=== PATIENT | female | born 1970 | race Caucasian/White ===

== ENCOUNTER → 2018-08-03 | Outpatient (CLI) | payer OTHER ==
[~2018-08-03] MED LIST: CALC-484 PO; CLOP75TA57 PO; LEVO100T5 PO; MULT1CAP19 PO; SERT50TA PO; SIMV10TA3 PO; ZOLP6.252 PO
[2018-08-03 16:12] LABS: BILIRUBIN,URINE NEGATIVE (NEG); CLARITY,URINE CLEAR; COLOR,URINE YELLOW; NITRITE,URINE NEGATIVE (NEG); PH,URINE 5.5; PROTEIN,URINE NEGATIVE (NEG-TRACE); UROBILINOGEN,URINE 0.2 mg/dL (0.2 mg/dL)
[2018-08-03 16:14] LABS: BASO % 1 % (0-3); EOS # 0.2 x10^3/uL (0.0-0.7); EOS % 3 % (0-3); HEMATOCRIT 34.6 % (36.0-47.0); HEMOGLOBIN 11.2 g/dL (12.0-15.5); LYMPH # 2.1 x10^3/uL (1.0-4.8); LYMPH % 33 % (24-48); MEAN CORPUSCULAR HEMOGLOBIN 29 pg (25-35); MEAN CORPUSCULAR HGB CONC 33 g/dL (31-37); MEAN CORPUSCULAR VOLUME 88 fL (79-100); MONO # 0.6 x10^3/uL (0.0-1.1); MONO % 10 % (0-9); NEUT # 3.4 x10^3uL (1.8-7.7); NEUT % 54 % (31-73); PLATELET COUNT 276 x10^3/uL (140-400); RED BLOOD COUNT 3.92 x10^6/uL (3.50-5.40); RED CELL DISTRIBUTION WIDTH 15.2 % (11.5-14.5); WHITE BLOOD COUNT 6.3 x10^3/uL (4.0-11.0)
[2018-08-03 16:26] LABS: ALBUMIN 3.9 g/dL (3.4-5.0); ALBUMIN/GLOBULIN RATIO 1.1 (1.0-1.7); CALCIUM 8.9 mg/dL (8.5-10.1); CREATININE 0.9 mg/dL (0.6-1.0); GFR 66.3; POTASSIUM 4.2 mmol/L (3.5-5.1); TOTAL BILIRUBIN 0.3 mg/dL (0.2-1.0); TOTAL PROTEIN 7.6 g/dL (6.4-8.2)
[2018-08-03 16:28] LABS: SQUAMOUS EPITHELIAL CELL,UR MOD /LPF
[2018-08-03 16:29] LABS: BACTERIA,URINE FEW /HPF (0-FEW); RBC,URINE OCC /HPF (0-2)
--- NOTE | 2018-08-04 06:06 | EKG ---
[facility] [address] [place] [address] Test Date: 2018-08-03 Test Time: 16:18:06 Pat Name: EVAN ORTEGA Department: Room: Gender: F Liturgical Music Director: : 1970 Requested By: MARIAM LEE Order Number: [id number] Reading MD: Talat Burton Measurements Intervals Corinna Rate: 53 P: 43 ME: 142 QRS: 13 QRSD: 70 T: 20 QT: 454 QTc: 428 Interpretive Statements SINUS RHYTHM LOW LIMB LEAD VOLTAGE Electronically Signed On 08-05-2018 9:08:19 E COMMERCE MARKETING ANALYST by Talat Burton
--- NOTE | 2018-08-04 08:31 | RAD ---
Chest, 2 views, 08/03/2018: HISTORY: Preop evaluation for hysterectomy The heart size is normal. No pulmonary infiltrate is seen. There is no evidence of pleural fluid. There is a mild thoracic scoliosis with mild multilevel degenerative change. IMPRESSION: No acute cardiopulmonary abnormality is detected. Electronically signed by: Nilo Fontenot MD (08/04/2018 8:28 AM) [facility]
--- NOTE | 2018-08-04 10:50 | NUR ---
FAXED PRE - OP TEST REPORTS AT 0221 08/04/2018 TO 'S OFFICE FOR REVIEW AND RECEIVED TRANSMITTAL CONFIRMATION.
== END | disposition home or self-care (01) ==
LOC: SURGPAT 14:48
PROVIDERS: ATTEND Obstetrics & Gynecology
DX: Z01.818 Encounter for other preprocedural examination (principal); E03.9 Hypothyroidism, unspecified; E78.00 Pure hypercholesterolemia, unspecified; M41.84 Other forms of scoliosis, thoracic region; M47.894 Other spondylosis, thoracic region
CPT/HCPCS: 36415; 71046; 80053; 81001; 85025; 93005

== ENCOUNTER 2018-08-13 05:49 | Observation (INO) | payer OTHER ==
[~2018-08-13] VITALS: Ht 160 cm; Wt 83.9 kg
[2018-08-13] VITALS (10 sets, daily range): BP systolic 88–110; BP diastolic 49–74
[2018-08-13 06:44] LABS: U PREG PATIENT NEGATIVE (NEG)
[2018-08-13] MEDS: IV RINGERS,LACTATED 1000ML 1,000 ML IV SCH ×2 (06:46→09:43)
[2018-08-13] MEDS ORDERED: ESTROGENS, CONJ VAGINAL CREAM 30GM TUBE. ONE (06:59)
[2018-08-13] MEDS ORDERED: BUPIVACAINE-EPI 0.25%-1:200000 MPF 30 ML VIAL. ONE (06:59)
[2018-08-13] MEDS ORDERED: LIDOCAINE 1% PF 2 ML VIAL. ID PRN (07:00)
[2018-08-13] MEDS ORDERED: HYDROmorphone 2 MG/ML VIAL IV PRN (07:00)
[2018-08-13] MEDS ORDERED: PROCHLORPERAZINE 10 MG/2 ML VIAL. IV PRN (07:00)
[2018-08-13] MEDS ORDERED: MORPHINE SULFATE 4 MG/ML VIAL. IV PRN ×2 (07:00→09:45)
[2018-08-13] MEDS ORDERED: fentaNYL PF VIAL 100 MCG/2 ML VIAL IV PRN ×2 (07:00)
[2018-08-13] MEDS ORDERED: ONDANSETRON PF 4 MG/2 ML VIAL. IV PRN ×2 (07:00→09:45)
[2018-08-13] MEDS ORDERED: DEXAMETHASONE SOD PHOS 20 MG/5 ML VIAL. ONE (07:16)
[2018-08-13] MEDS ORDERED: LIDOCAINE 2% PF 5 ML VIAL. ONE (07:16)
[2018-08-13] MEDS ORDERED: PROPOFOL 20 ML IV ONE ×2 (07:16→09:17)
[2018-08-13] MEDS ORDERED: ONDANSETRON PF 4 MG/2 ML VIAL. ONE (07:16)
[2018-08-13] MEDS ORDERED: ROCURONIUM 50 MG/5 ML VIAL. ONE (07:16)
[2018-08-13] MEDS ORDERED: fentaNYL PF VIAL 100 MCG/2 ML VIAL ONE ×2 (07:16→09:12)
[2018-08-13] MEDS ORDERED: MIDAZOLAM HCL/PF 2 MG/2 ML VIAL. ONE (07:17)
[2018-08-13] MEDS ORDERED: SCOPOLAMINE 1.5MG PATCH. TD ONE ×2 (07:40→08:15)
[2018-08-13] MEDS ORDERED: ZOLPIDEM 5 MG TABLET. PO PRN ×2 (07:45→09:45)
[2018-08-13] MEDS ORDERED: GLYCOPYRROLATE 1 MG/5 ML VIAL. ONE (07:57)
[2018-08-13] MEDS ORDERED: SEVOFLURANE 61 TO 120 MINUTES. IH ONE (08:15)
[2018-08-13] MEDS ORDERED: PHENYLEPHRINE 10 MG/ML VIAL. ONE (08:15)
[2018-08-13] MEDS ORDERED: KETOROLAC 30 MG/ML INJ FOR OR. INJ ONE (08:23)
[2018-08-13] MEDS ORDERED: NEOSTIGMINE 10 MG/10 ML VIAL. ONE (08:35)
--- NOTE | 2018-08-13 09:32 | PDOC ---
BRIEF OPERATIVE NOTE Date: Aug 13, 2018 Pre-Op Diagnosis menorrhagia, dysmenorrhea Post-Op Diagnosis same Procedure Performed LAVH, bilateral salpingectomy, left ovarian cystectomy, reduction of omentum through umbilical hernia Surgeon Dr. Karey Palmer Strike Operations Officer Nabila Shell Anesthesiologist Dr. Zaragoza Anesthesia Type: General Blood Loss 100cc IV Fluid 1200cc Urine Output 200cc clear via bell Specimens Obtained cervix, uterus, bilateral tubes and left ovarian cyst Findings small left ovarian cyst, evidence of prior tubal ligation, umbilical hernia with omentum protruding through it Complications none Operative Note [id number] KAREY PALMER MD Aug 13, 2018 09:32
[2018-08-13] MEDS ORDERED: KETOROLAC 30 MG/ML VIAL. IV PRN (09:45)
[2018-08-13] MEDS ORDERED: 0.9 % SODIUM CHLORIDE 10 ML DISP.SYRIN. IV PRN (09:45)
[2018-08-13] MEDS ORDERED: MAGNESIUM HYDROXIDE 2,400 MG/30 ML ORAL.SUSP. PO PRN (09:45)
[2018-08-13] MEDS ORDERED: SIMETHICONE 80 MG TAB.CHEW PO PRN (09:45)
[2018-08-13] MEDS ORDERED: CALCIUM CARBONATE 500 MG TAB.CHEW PO PRN (09:45)
[2018-08-13] MEDS ORDERED: LACTULOSE 20 GM/30 ML SOLUTION. PO PRN (09:45)
[2018-08-13] MEDS ORDERED: MAG HYDROX/ALUMINUM HYD/SIMETH 30 ML ORAL.SUSP PO PRN (09:45)
[2018-08-13] MEDS ORDERED: diphenhydrAMINE 50 MG/ML VIAL IV PRN (09:45)
[2018-08-13] MEDS ORDERED: HYDROcodone/APAP 5/325MG 1 TAB TABLET PO PRN (09:45)
[2018-08-13] MEDS ORDERED: diphenhydrAMINE HCL 25 MG CAPSULE PO PRN (09:45)
[2018-08-13] MEDS ORDERED: NALOXONE 0.4 MG/ML VIAL. IV PRN (09:45)
--- NOTE | 2018-08-13 10:57 | OP ---
DATE OF SURGERY: 08/13/2018 PREOPERATIVE DIAGNOSES: 1. Menorrhagia. 2. Dysmenorrhea. 3. Anemia. POSTOPERATIVE DIAGNOSES: 1. Menorrhagia. 2. Dysmenorrhea. 3. Anemia. PROCEDURE: Laparoscopic-assisted vaginal hysterectomy, bilateral salpingectomy, left ovarian cystectomy and reduction of omentum through umbilical hernia. SURGEON: Mariam Lee M.D. ENTERTAINER & COMIC: Nabila Shell. ANESTHESIOLOGIST: [place] Zaragoza MD. ANESTHESIA: General. BLOOD LOSS: 100 mL. URINE OUTPUT: 200 mL, clear via Richards catheter. INTRAVENOUS FLUIDS: 1200 mL of crystalloid. FINDINGS: A normal retroverted uterus, evidence of prior tubal ligation, normal ovaries. She did have a small 1-2 cm appeared to be hemorrhagic cyst on the left ovary and the umbilical hernia with omentum protruding. COMPLICATIONS: None. DESCRIPTION OF PROCEDURE: This patient was taken to the operating room where general anesthesia was placed. The patient was placed in dorsal lithotomy position in [facility]. The patient's abdomen and vagina were prepped and draped in the normal sterile fashion and a Richards catheter had been inserted under sterile technique. Upon my arrival, a timeout was performed. A bivalve speculum was placed in the patient's vagina. A single tooth tenaculum was used to grasp the anterior lip of the cervix. A 10 mL of 0.25% Marcaine with epinephrine was used to circumferentially inject around the cervix for both hemodissection and hemostatic purposes later. Once this was done, the Valtchev uterine manipulator was placed through the endocervical os, locked on the single tooth tenaculum and the bivalve speculum was then removed. Top gloves were discarded and changed. Attention was then turned to the abdomen where a small left upper quadrant incision was made in the midclavicular area down from the breast line on the left side, a couple of centimeters down from the rib line. A curved Val was used to dissect through the subcuticular layer to the fascia. The 5-mm Visiport was used to directly enter the abdominal cavity. Opening patient pressure was 3-4 mmHg. Carbon dioxide gas was used to appropriately insufflate the abdominal cavity to maintain a pressure of 15 mmHg. The patient was placed in Trendelenburg position. Left lower quadrant and right lower quadrant ports were placed. They were clear of adhesions transilluminating the abdomen, making a small incision and placing the 5-mm trocar and insufflating the cuff with 4-5 mL of air. I then did move the camera, looked up at the left upper quadrant to make sure it was clear and it was and placed air in this cuff as well. Once these were all in, the left tube and ovary were elevated. The ureter was found coursing low, staying high above the ovary, but below the tube using the LigaSure to do a salpingectomy, then crossing the left uterine ovarian pedicle and getting the left round ligament. This was done exactly the same on the right side first starting looking for the ureter and then finding it coursing low, staying high above the ovary, below the tube, doing a salpingectomy, crossing the right uterine ovarian pedicle and then the right round ligament. Once this was done, the bladder flap was started from in front of the round on both sides and met in the middle using the [place] to elevate and the monopolar hook to cut across and peeling it down with excellent results. Once this was done, the uterine vessels were obtained on the right side and taking it down to the level of the uterosacrals on this side. Same thing was done on the left side obtaining the uterine vessels and going down vertically and through the cardinal and broad ligaments with the LigaSure, cauterizing and cutting down to the level of the uterosacrals. The uterus was blanching and completely free. When I grabbed the left ovary to go check it, I was able to get the 2-3 cm hemorrhagic cyst off the ovary and the remaining ovary looked good, so I placed it in the posterior cul-de-sac, so I could get it out vaginally when I did the hysterectomy. At this point, all instruments were removed from the abdomen and attention was turned vaginally. The single tooth and Valtchev were removed. A weighted speculum was placed in the patient's vagina. Thyroid Leslie clamps were placed on the anterior and posterior lips of the cervix respectively. A scalpel was used to make a circumferential incision in the cervix. The posterior cul-de-sac was sharply entered with the Allen scissors and a #0 Vicryl stitch was used to secure the posterior peritoneum to the vaginal cuff, tagging it with a curved Val clamp and cutting and passing the needle off. The short weighted vaginal speculum was removed and replaced with the long weighted Tho speculum in the posterior cul-de-sac. The peritoneum was gently pushed up with an open Ray-Jordi 4 x 4 and a curved Dow was placed here. Curved Stefanie clamps x 2 were placed on the patient's left uterosacral ligament where they were doubly clamped with curved Heaneys, cut with Allen scissors and suture ligated x 2 with 0 Vicryl. Second one was taken through the vaginal cuff securing uterosacral ligament to the vaginal cuff, tagging it with a straight Val clamp and cutting and passing the needle off. This was done exactly the same on the right side, double clamping the uterosacrals with curved Stefanie's, cutting with Allen scissors and suture ligating x 2 with 0 Vicryl and taking the second one through the vaginal cuff and tagging it with a straight Val clamp. I then did get in on the patient's right side, was able to pass the mixture curved clamp around the remaining pedicle on the right and the vaginal LigaSure was used to cauterize and cut this. I was able to then cut across where the opening was to make sure I was in, took out the Ray-Jordi and replaced just a curved Dow in the anterior cul-de-sac, was able to get around the left side as well once it was with the mixture, the curved and then using the vaginal LigaSure to cauterize and cut this side as well. Cervix, uterus, bilateral tubes were delivered in toto. The little cyst was found in the posterior cul-de-sac. It was also passed off for permanent pathology. Sponge stick was used to examine the pedicles. There was some slight bleeding from the left uterosacral. This was easily gotten with the vaginal LigaSure. A sponge stick was used to push the bowel up while I looked at this and cauterized this. A long Allis was used to grasp the anterior bladder peritoneum and then, I took the long weighted Tho speculum out and replaced it with the short weighted vaginal speculum just to examine everything again. Once hemostasis was assured, 2-0 Vicryl was taken through the anterior bladder peritoneum, left uterosacral ligament, posterior peritoneum and right uterosacral ligament, thus closing the peritoneum in a pursestring like fashion. Before I did that, I did put a couple of interrupted sutures securing the posterior peritoneum on each corner to the vaginal cuff as it was oozy just in that area with excellent result and then, I closed the peritoneum in that pursestring like fashion. Once this was done, the right and left uterosacral tags were clipped as well and the cuff was closed in an anterior to posterior running locked fashion and tied to that posterior cuff tag with excellent results, so the cuff was completely hemostatic and dry, so all instruments were removed from the vagina. All sponge, lap and needle counts were correct x 2 by OR personnel before going above. At this point, all gloves were discarded and changed and attention was turned back above for a second look. The patient was placed back in Trendelenburg. Gas was reinsufflated. Copious irrigation revealed hemostasis. Tisseel was placed over the vaginal cuff. Both ovaries looked good and it was hemostatic. Copious irrigation was done before than the Tisseel. So the right and left lower quadrant ports were taken out under direct visualization. Gas was released from the trocar cuff. They were removed and hemostatic. Gas was then released from the abdomen from the left upper quadrant port. That cuff was deflated and it was removed as well. All three port sites were being closed with 4-0 nylon at the skin and Steri-Strips and injected with 10 mL of local. The patient is currently being awakened from anesthesia. MARIAM LEE MD DR: RHIANNON/roni JOB#: [id number] / [id number]
[2018-08-13] MEDS: oxyCODONE/APAP 5/325 1 TAB TABLET PO PRN ×2 (13:51→20:49)
[2018-08-13] MEDS ORDERED: SIMVASTATIN 5 MG TABLET. PO SCH (21:00)
[2018-08-13] MEDS ORDERED: SIMVASTATIN 10 MG TABLET PO SCH (21:00)
[2018-08-14] MEDS ORDERED: LEVOTHYROXINE 100 MCG TABLET PO SCH (06:00)
[2018-08-14] MEDS: oxyCODONE/APAP 5/325 1 TAB TABLET PO PRN (06:15)
[2018-08-14 06:30] VITALS: BP 98/51
[2018-08-14 07:44] LABS: CALCIUM 8.5 mg/dL (8.5-10.1); GFR 58.7
--- NOTE | 2018-08-14 08:59 | PDOC ---
SURGICAL PROGRESS NOTE Subjective Doing well, ambulating, minimal pain, scant vag bleeding. Tolerating regular diet. Wanting to go home only problem is unable to urinate without catheter yet, putting out excellent urine but unable to urinate Vital Signs Vital Signs Date Time Temp Pulse Resp B/P (MAP) Pulse Ox O2 Delivery O2 Flow Rate FiO2 08/14/18 06:30 99.2 75 14 98/51 (67) 97 Room Air 99.2 08/13/18 10:45 2.0 I&O Intake and Output 08/14/18 06:59 Intake Total 3487 ml Output Total 1300 ml Balance 2187 ml Intake Oral 1737 ml IV Total 1750 ml Output Urine Total 1200 ml Estimated Blood Loss 100 ml PATIENT HAS A HAAS: No General: Alert, Oriented X3, Cooperative, No acute distress HEENT: Atraumatic Heart: Regular rate Abdomen: Soft, No tenderness, Other (all port sites c/d/i) Extremities: No clubbing, No cyanosis, No edema, No tenderness/swelling Skin: No rashes, No breakdown Neuro: Normal speech Psych/Mental Status: Mental status NL, Mood NL Labs Laboratory Tests Test 08/13/18 06:15 08/14/18 07:05 Urine Test Negative (NEG) Hematocrit 32.5 % (36.0-47.0) Sodium Level 144 mmol/L (136-145) Potassium Level 4.0 mmol/L (3.5-5.1) Chloride Level 107 mmol/L (98-107) Carbon Dioxide Level 29 mmol/L (21-32) Anion Gap 8 (6-14) Blood Urea Nitrogen 13 mg/dL (7-20) Creatinine 1.0 mg/dL (0.6-1.0) Estimated GFR (Cockcroft-Gault) 58.7 Glucose Level 94 mg/dL (70-99) Calcium Level 8.5 mg/dL (8.5-10.1) Laboratory Tests Test 08/14/18 07:05 Hematocrit 32.5 % (36.0-47.0) Sodium Level 144 mmol/L (136-145) Potassium Level 4.0 mmol/L (3.5-5.1) Chloride Level 107 mmol/L (98-107) Carbon Dioxide Level 29 mmol/L (21-32) Anion Gap 8 (6-14) Blood Urea Nitrogen 13 mg/dL (7-20) Creatinine 1.0 mg/dL (0.6-1.0) Estimated GFR (Cockcroft-Gault) 58.7 Glucose Level 94 mg/dL (70-99) Calcium Level 8.5 mg/dL (8.5-10.1) I have reviewed the following labs, vitals, nursing Problem List POD#1 s/p LAVH/bilateral salpingectomy, left ovarian cystectomy and reduction of umbilical hernia urinary retention, if able to pee can d/c to home without catheter NPV x 6 weeks light/limited x 2 weeks keep scheduled follow up with me in one week NO driving while on narcotic pain meds already has pain pills at home call or return sooner for any other questions not limited to but including pain unrelieved withpain meds, increased or unexplained vaginal bleeding or T>100.4 MARIAM LEE MD Aug 14, 2018 08:59
[2018-08-14] MEDS ORDERED: SERTRALINE 50 MG TABLET. PO SCH (09:00)
[2018-08-14] MEDS ORDERED: OPIUM/BELLADONNA 30/16.2MG SUPP.RECT. PR PRN (09:00)
[2018-08-14] MEDS ORDERED: TAMSULOSIN 0.4 MG CAP.ER.24H. PO SCH (09:00)
--- NOTE | 2018-08-14 09:03 | PDOC3 ---
Discharge Summary Visit Information Date of Admission: Aug 13, 2018 Date of Discharge: Aug 14, 2018 Admitting Diagnosis Comment: menorrhagia, dysmenorrhea Brief Hospital Course Allergies Allergies Coded Allergies Type Severity Reaction Last Updated Verified No Known Drug Allergies 08/13/18 No Vital Signs Vital Signs Date Time Temp Pulse Resp B/P (MAP) Pulse Ox O2 Delivery O2 Flow Rate FiO2 08/14/18 06:30 99.2 75 14 98/51 (67) 97 Room Air 99.2 08/13/18 10:45 2.0 Lab Results Laboratory Tests Test 08/13/18 06:15 08/14/18 07:05 Urine Test Negative (NEG) Hematocrit 32.5 % (36.0-47.0) Sodium Level 144 mmol/L (136-145) Potassium Level 4.0 mmol/L (3.5-5.1) Chloride Level 107 mmol/L (98-107) Carbon Dioxide Level 29 mmol/L (21-32) Anion Gap 8 (6-14) Blood Urea Nitrogen 13 mg/dL (7-20) Creatinine 1.0 mg/dL (0.6-1.0) Estimated GFR (Cockcroft-Gault) 58.7 Glucose Level 94 mg/dL (70-99) Calcium Level 8.5 mg/dL (8.5-10.1) Laboratory Tests Test 08/14/18 07:05 Hematocrit 32.5 % (36.0-47.0) Sodium Level 144 mmol/L (136-145) Potassium Level 4.0 mmol/L (3.5-5.1) Chloride Level 107 mmol/L (98-107) Carbon Dioxide Level 29 mmol/L (21-32) Anion Gap 8 (6-14) Blood Urea Nitrogen 13 mg/dL (7-20) Creatinine 1.0 mg/dL (0.6-1.0) Estimated GFR (Cockcroft-Gault) 58.7 Glucose Level 94 mg/dL (70-99) Calcium Level 8.5 mg/dL (8.5-10.1) Brief Hospital Course Ms. Max is a 48 old female who presented with menorrhagia and dysmenorrhea. She underwent LAVH/bilateral salpingectomy/left ovarian cystectomy and reduction of umbilical hernia yesterday without complications. She had trouble voiding after surgery so catheter placed overnight, out this am and has not voided yet. If able to void d/c to home later today. She is ambulating well, scant vb, tolerating regular diet and minimal pain feels good. Wants to go home. AF VSS hgb started at 11.2 and remains close to 11 this am postop so excellent Discharge Information Condition at Discharge: Stable Follow Up: Weeks Disposition/Orders: D/C to Home Scheduled Calcium Citrate/Vitamin D3 (Calcium Citrate-Vit D3 Tablet) 1 Each Tablet, 1 EACH PO TID for BARIATRIC SURGERY SUPPLIMENT, (Reported) Entered as Reported by: UMM MURDOCK on 08/03/181701 Last Taken: Unknown Dose on 08/12/18 Last Action: HELD on 08/13/18723 by MARIAM LEE Clopidogrel Bisulfate (Plavix) 75 Mg Tablet, 1 TAB PO DAILY for CAROTID BLOCKAGE , #90 Ref 1 (Reported) Entered as Reported by: UMM MURDOCK on 08/03/181701 Last Taken: Unknown Dose on 08/03/18 Last Action: HELD on 08/13/18723 by MARIAM LEE Levothyroxine Sodium (Levothyroxine Sodium) 100 Mcg Tablet, 1 TAB PO DAILY for THYROID, #30 Ref 5 (Reported) Entered as Reported by: UMM MURDOCK on 08/03/181701 Last Taken: Unknown Dose on 08/13/18399 Last Action: Continued on 723 by MARIAM LEE Multivitamins,Ther W-Minerals (Multivitamins With Minerals Hp) 1 Each Capsule, 2 EACH PO 1X for WITH PROBIOTICS, (Reported) Entered as Reported by: UMM MURDOCK on 08/03/181701 Last Taken: Unknown Dose on 08/12/18 Last Action: HELD on 08/13/18723 by MARIAM LEE Sertraline Hcl (Zoloft) 50 Mg Tablet, 1 TAB PO DAILY for DEPRESSION, #30 Ref 2 ( Reported) Entered as Reported by: UMM MURDOCK on 08/03/181701 Last Taken: Unknown Dose on 08/12/18 Last Action: Continued on 08/13/18723 by MARIAM LEE Simvastatin (Simvastatin) 10 Mg Tablet, 5 MG PO DAILY for FOR CHOLESTEROL, #30 Ref 0 (Reported) Entered as Reported by: UMM MURDOCK on 08/03/181701 Last Taken: Unknown Dose on 08/12/18 Last Action: Continued on 08/13/18723 by MARIAM LEE Scheduled PRN Zolpidem Tartrate (Ambien Cr) 6.25 Mg Tab.mphase, 6.25 MG PO PRN QHS PRN for INSOMNIA, Ref 0 (Reported) Entered as Reported by: UMM MURDOCK on 08/03/18 170 Last Taken: Unknown Dose on 08/11/18 Last Action: Converted on 08/13/18723 by MARIAM LEE Patient Instructions Patient Instructions POD#1 s/p LAVH/bilateral salpingectomy, left ovarian cystectomy and reduction of umbilical hernia urinary retention, if able to pee can d/c to home without catheter NPV x 6 weeks light/limited x 2 weeks keep scheduled follow up with me in one week NO driving while on narcotic pain meds already has pain pills at home call or return sooner for any other questions not limited to but including pain unrelieved withpain meds, increased or unexplained vaginal bleeding or T>100.4 MARIAM LEE MD Aug 14, 2018 09:03
--- NOTE | 2018-08-17 10:07 | PATHOLOGY ---
[facility] Accession Number: [id number] . 01 Material submitted: . UTERUS, CEVIX, AND BILATERAL FALLOPIAN TUBES . 01 Clinical history: . Dysmenorrhea, dysfunctional uterine bleeding. . 02 Diagnosis: Uterus and attached bilateral fallopian tubes, laparoscopic assisted vaginal hysterectomy with bilateral salpingectomy: - Adenomyosis, uterine corpus, (uterine weight 100 grams). - Mild chronic cervicitis with squamous metaplasia, focal. - Early secretory endometrium. - Right paratubal cyst. - Congestion of bilateral fallopian tubes with focal mild left hydrosalpinx. (JULIANM:madi; 08/14/2018) MBR/08/14/2018 . 02 Comment: There is no atypia or evidence of malignancy. (EMI:madi; 08/14/2018) . 02 Electronically signed: . Desmond Armstrong MD, Pathologist NPI- [id number] . 01 Gross description: . Received in formalin labeled "Callie Max, uterus, cervix, bilateral fallopian tubes" is a hysterectomy specimen with attached fallopian tubes. The uterus weighs 100 g and measures 9.1 cm from fundus to cervix, 6.2 cm from cornu to cornu, and 4.2 cm from anterior to posterior. The serosa is pink-red and hemorrhagic and the ectocervical mucosa is pink-sanchez and smooth and displays a 1.7 cm slitlike cervical os. The cervix is probed patent and the uterus is opened to reveal a 2.0 x 0.9 cm endocervical canal and a 3.5 x 2.2 cm endometrial cavity. Upon sectioning, the average endometrial thickness is 0.2 cm and the average myometrial thickness is 1.7 cm. No leiomyomata are identified. Focal trabeculated areas are identified. The right fallopian tube measures 4.5 x 0.6 cm and the left fallopian tube measures 4.2 x 0.7 cm. The external surfaces are pink-sanchez and smooth and the right fallopian tube displays a 1.2 cm thin walled simple cyst. Upon sectioning, the left fallopian tube displays a dilated lumen. Piece Work Checker sections of the specimen are submitted as follows: A1 12:00 cervix A2 6:00 cervix A3 anterior endomyometrium A4 posterior endomyometrium A5 customer operations representative right fallopian tube A6 customer operations representative left fallopian tube ([facility] 08/13/2018) SYC/SYC . 02 Pathologist provided ICD-10: N80.0, N72, N83.8, N70.11 . 02 CPT . 259962 Specimen Comment: A courtesy copy of this report has been sent to Specimen Comment: [phone], . Specimen Comment: Report sent to / DR MILIAN Specimen Comment: A duplicate report has been generated due to demographic updates. Performed at: 01 [facility] [address], [place] [id number] MD Audie Constantino MD Phone: [phone] Performed at: 02 [facility] [address] [place], [place] [id number] MD Desmond Armstrong MD Phone: [phone]
== END 2018-08-14 17:10 | disposition home or self-care (01) ==
LOC: SURG 05:49 → EDUNIT# 07:30 → 3 NORTH 10:04
PROVIDERS: ADMIT Obstetrics & Gynecology; ATTEND Obstetrics & Gynecology
DX: N92.0 Excessive and frequent menstruation with regular cycle (principal); N94.6 Dysmenorrhea, unspecified; D64.9 Anemia, unspecified; N93.8 Other specified abnormal uterine and vaginal bleeding; E03.9 Hypothyroidism, unspecified; E78.00 Pure hypercholesterolemia, unspecified; I63.9 Cerebral infarction, unspecified; Z98.890 Other specified postprocedural states
CPT/HCPCS: 36415; 49652; 58552; 80048; 81025; 85014; 86850; 86900; 86901; 88307; 96374; 96375; A7015; G0378; G0379; J0696; J1100; J1885; J2001; J2250; J2270; J2405; J2704; J2710; J3010; J3490; J7030; J7120